=== PATIENT | female | born 1975 | race Caucasian/White ===

== ENCOUNTER 2019-08-05 10:03 | Observation (INO) | payer BC, SELFPAY ==
[2019-08-05 11:02] LABS: #Basophils 0.1 thou/uL (0.0-0.2); #Eosinphils 0.1 thou/uL (0.0-0.7); #Lymphocytes 2.8 thou/uL (1.20-3.40); #Monocytes 0.6 thou/uL (0.11-0.59); #Neutrophils 5.9 thou/uL (1.40-6.50); %Basophils 0.6 % (0.0-1.0); %Eosinophils 0.8 % (0.0-10.0); %Lymphocytes 29.6 % (21.0-51.0); Hemoglobin 16.6 g/dL (12.0-16.0); Mean Corpuscular HGB CONC 34.9 g/dL (32.0-36.0); Mean Corpuscular Hemoglobin 32.7 pg (27.0-31.0); Mean Corpuscular Volume 93.5 fL (78.0-98.0); Mean Platelet Volume 9.1 fL (7.4-10.4); Platelet Count 129 thou/uL (130-400); RBC Distribution Width 11.9 % (11.5-14.5); Red Blood Cell (RBC) Count 5.07 mill/uL (4.20-5.40); White Blood Cell (WBC) Count 9.4 thou/uL (4.8-10.8)
--- NOTE | 2019-08-05 11:11 | RAD ---
EXAM: Chest PA and lateral: HISTORY: Chest pain COMPARISON: 08/30/2009 FINDINGS: Heart size:Within normal limits. Lungs:Clear of acute process. No confluent pneumonia, overt edema, pleural effusion, or other acute process. IMPRESSION: No significant acute intrathoracic disease.
[2019-08-05 11:27] LABS: ALT (SGPT) 140 U/L (8-55); AST (SGOT) 66 U/L (5-34); Alkaline Phosphatase 145 U/L (40-110); Anion Gap 12 mmol/L (10-20); BUN (Urea Nitrogen) 11 mg/dL (7.0-18.7); Bilirubin, Total 0.6 mg/dL (0.2-1.2); CK (CPK) 59 U/L (29-168); Calc. Creatinine Clearance 0 mL/min (70-130); Calcium 9.7 mg/dL (7.8-10.44); Carbon Dioxide 24 mmol/L (22-29); Chloride 102 mmol/L (98-107); Estimated GFR-MDRD 78; Globulin 3.6 g/dL (2.4-3.5); Glucose 279 mg/dL (70-105); Potassium 4.2 mmol/L (3.5-5.1); Protein, Total 7.6 g/dL (6.0-8.3); Sodium 134 mmol/L (136-145)
[2019-08-05 11:30] LABS: BHCG - Serum Negative (NEGATIVE); Pregs Control Background? CLEAR/WHITE (CLR/WHITE); Pregs Control Bar Appear? YES (CONTROL BAR)
[2019-08-05] MEDS ORDERED: Aspirin Chewable 81 MG TAB ONE (12:43)
--- NOTE | 2019-08-05 13:41 | ULT ---
RIGHT UPPER QUADRANT ABDOMINAL ULTRASOUND: Date: 08/05/19 HISTORY: Chest pain and right upper quadrant abdominal pain. TECHNIQUE: Multiplanar Wheat scale and color Doppler images were obtained in a right upper quadrant abdominal ult rasound. FINDINGS: The liver demonstrates increased echogenicity. There is an area of focal fatty sparing. The gallbladd er is normal without stones, sludge, gallbladder wall thickening, or pericholecystic fluid. The commo n bile duct is upper limits of normal measuring 8 mm. The pancreas cannot be visualized. The right kidney is normal in echogenicity without hydronephrosis or calculus and measures 11.0 cm in length. IMPRESSION: Fatty liver. POS: [facility]
[2019-08-05 14:54] LABS: Troponin I Less than 0.010 ng/mL (< 0.028)
[2019-08-05 17:32] VITALS: BMI 35.2
[2019-08-05] MEDS ORDERED: Ondansetron ODT 4 MG TAB SL PRN (17:40)
[2019-08-05] MEDS ORDERED: Ondansetron PF 4 MG/2 ML Vial IVP PRN (17:40)
[2019-08-05] MEDS ORDERED: Zolpidem Tartrate 5 MG TAB PO PRN (20:04)
[2019-08-05] MEDS ORDERED: Acetaminophen 325 MG TAB PO PRN (20:06)
[2019-08-05] MEDS ORDERED: Ondansetron ODT 4 MG TAB PO PRN (20:06)
[2019-08-05] MEDS ORDERED: Atorvastatin Calcium 40 MG TAB PO SCH (21:00)
[2019-08-05] MEDS: Nystatin Powder 15 GM BOT TOP SCH (21:29)
--- NOTE | 2019-08-06 01:25 | HP ---
CHIEF COMPLAINT: Chest pain. HISTORY OF PRESENT ILLNESS: The patient is a 44-year-old female, who for the past week has been having intermittent episodes of chest pains, usually substernal. They radiate under the right breast up into the right shoulder and on the day of admission, they went down to the right arm where she was unable to use her right arm. They were made worse at times by deep breathing and by palpation, it can be replicated but not completely. There was associated nausea with this. At one point, it was associated with headache where she nearly passed out. She thought her relatives told her it was due to a migraine, so she put off coming to the ER to finally it got worse. There is some association with taking a deep breath as mentioned previously, but she has never had a pain like this before. Her family history is strong for coronary artery disease, so she was put in for further evaluation. There was no vomiting or diaphoresis associated with this. She also has a strong smoking history. PAST MEDICAL HISTORY: Significant for hyperlipidemia, migraines, anxiety disorder, tobacco abuse. PAST SURGICAL HISTORY: Includes right ankle surgery and nose surgery. PSYCHIATRIC HISTORY: As mentioned previously is strong for anxiety and depression. SOCIAL HISTORY: Denies alcohol use, drug use. There has been no recent smoking. ALLERGIES: TO LYRICA AND NAPROXEN. MEDICATIONS ON ADMISSION: Include: 1. Toprol 50 mg b.i.d. 2. Atorvastatin 40 mg at bedtime. REVIEW OF SYSTEMS: CONSTITUTIONAL: Negative for fatigue, fever, or chills. HEENT: Negative for sores or drainage from eyes, ears, nose, or throat. CARDIOVASCULAR: Significant with reported chest discomfort, but denies palpitations. RESPIRATORY: She denies cough or dyspnea. GI: She denies diarrhea or vomiting, but states there was some mild nausea associated with this chest discomfort. GENITOURINARY: She denies dysuria, blood in urine or stool. MUSCULOSKELETAL: Has some chest wall discomfort noted with palpation and sometimes with deep breathing. Otherwise, no major joint or muscle group discomfort. SKIN: She has distinctive rash underneath both breasts from sweating and it is very pruritic. NEUROLOGIC: Denies any headaches at this time. No changes in mentation, hypesthesia or anesthesia. HEMOLYTIC/LYMPH: Denies any new bruising or areas of swelling. PHYSICAL EXAMINATION: VITAL SIGNS: At the time of admission, blood pressure was 166/82, pulse 81, respirations 16, temperature 98.1 with pain scale 6/10 on arrival, and O2 saturation of 98% on room air. GENERAL: This is an alert, cooperative, oriented, obese female. HEENT: Normocephalic, atraumatic. Pupils are equal, round, and reactive to light. Extraocular muscles are intact. Normocephalic and atraumatic. NECK: Supple. Trachea midline. No mass. No bruit. CHEST: Clear to auscultation. There is distinctive rash underneath both breasts. Breast exams were deferred. Breath sounds are clear to auscultation bilaterally and currently do not reproduce any chest pain. CARDIOVASCULAR: Regular rate and rhythm without murmur. ABDOMEN: Soft, nontender without organomegaly. : Deferred. EXTREMITIES: Without clubbing, cyanosis, or edema. Normal range of motion in upper and lower extremities is noted. SKIN: Distinctive brownish macular rash underneath both breasts that is wet. NEUROLOGICAL: Cranial nerves are intact. Gait and cerebral function intact. Sensory exam is intact. Mental status is at baseline. LABORATORY DATA: Lab on admission. Chest x-ray shows no acute disease of the chest. EKG shows 79 beats per minute rate with no ST elevation or depression. T-waves are normal. No acute findings. WBCs are 9.4, hemoglobin is 16.6, hematocrit is 47.4 with platelets of 129. Sodium 134, potassium 4.2, chloride 102, CO2 of 24, BUN is 11, creatinine 0.79 with a GFR 78, glucose is 279, calcium 9.7, AST elevated at 66, ALT elevated at 140, alkaline phos elevated at 145, creatine kinase is 59. Troponins are negative. Lipase at 16. Serum test negative. Abdominal ultrasound shows no acute findings other than a fatty liver. ASSESSMENT: 1. Atypical chest pain with multiple risk factors. 2. Hyperglycemia, possible new onset diabetes. 3. Probable fatty liver disease. 4. Hemoconcentration. PLAN: Stress test and serial re-evaluation and reassessment of fasting glucose levels. We will also get a fasting lipid profile in the morning. Job ID: [id number]
[2019-08-06 05:46] LABS: #Basophils 0.1 thou/uL (0.0-0.2); #Eosinphils 0.1 thou/uL (0.0-0.7); #Lymphocytes 2.9 thou/uL (1.20-3.40); #Monocytes 0.6 thou/uL (0.11-0.59); #Neutrophils 4.3 thou/uL (1.40-6.50); %Basophils 1.2 % (0.0-1.0); %Eosinophils 1.5 % (0.0-10.0); %Lymphocytes 36.3 % (21.0-51.0); %Monocytes 7.5 % (0.0-10.0); %Neutrophils 53.5 % (42.0-75.0); Hemoglobin 15.8 g/dL (12.0-16.0); Mean Corpuscular Hemoglobin 33.3 pg (27.0-31.0); Mean Corpuscular Volume 95.3 fL (78.0-98.0); Platelet Count 129 thou/uL (130-400); Red Blood Cell (RBC) Count 4.73 mill/uL (4.20-5.40)
[2019-08-06 05:52] LABS: Hemoglobin A1c 8.8 % (4.0-6.0)
[2019-08-06 06:07] LABS: Anion Gap 9 mmol/L (10-20); BUN (Urea Nitrogen) 10 mg/dL (7.0-18.7); Calc. Creatinine Clearance 155 mL/min (70-130); Carbon Dioxide 26 mmol/L (22-29); Cardiac Risk 5.2 (Less than 4.5); Chloride 103 mmol/L (98-107); Cholesterol 88 mg/dl (< 200 Desired); Estimated GFR-MDRD 89; Glucose 273 mg/dL (70-105); HDL Cholesterol 17 mg/dL (>60 Neg Risk); LDL Cholesterol, Calculated 47 mg/dL; Potassium 3.8 mmol/L (3.5-5.1); Sodium 134 mmol/L (136-145); Triglycerides 119 mg/dL (Less than 150)
[2019-08-06] MEDS ORDERED: metFORMIN 500 MG TAB PO SCH (08:00)
[2019-08-06] MEDS: Nystatin Powder 15 GM BOT TOP SCH (08:26)
[2019-08-06] MEDS ORDERED: Aspirin Chewable 81 MG TAB PO SCH (09:00)
[2019-08-06] MEDS ORDERED: Lisinopril 5 MG TAB PO SCH (09:00)
[2019-08-06] MEDS ORDERED: Pioglitazone HCl 15 MG TAB PO SCH (09:00)
[2019-08-06 11:44] VITALS: BP 117/70; TEMP 98
--- NOTE | 2019-08-06 13:43 | NM ---
NUCLEAR MEDICINE CARDIAC PERFUSION EXAMINATION WITH EJECTION FRACTION: COMPARISON: None. HISTORY: 44-year-old female with chest pain. TECHNIQUE: A two day nuclear medicine cardiac perfusion examination was performed. Rest images were obtained usi ng 30.1 mCi of technetium-99m sestamibi. Stress images were obtained using 31.5 mCi of technetium-99m sestamibi and Adenosine. FINDINGS: Tomographic images show no fixed or reversible perfusion defects. Gated images show normal wall motio n with an ejection fraction of greater than 70%. EDV: 93 mL LHR: 0.2 TID: 1.3 IMPRESSION: No evidence of ischemia. POS: [facility]
[2019-08-06] MEDS ORDERED: ADENOSINE 60 MG/20 ML VIAL ONE (14:15)
== END 2019-08-06 15:49 | disposition home or self-care (01) ==
LOC: ERS 10:03 → 2SW 17:27
PROVIDERS: ADMIT Specialist; ATTEND Specialist
DX: R07.89 Other chest pain (principal); R73.9 Hyperglycemia, unspecified; E78.5 Hyperlipidemia, unspecified; E78.00 Pure hypercholesterolemia, unspecified; G43.909 Migraine, unspecified, not intractable, without status migrainosus; I10 Essential (primary) hypertension; Z79.899 Other long term (current) drug therapy; Z88.6 Allergy status to analgesic agent; Z88.8 Allergy status to other drugs, medicaments and biological substances
CPT/HCPCS: 36415; 36416; 71046; 76705; 78452; 80048; 80053; 80061; 82550; 83036; 83690; 84484; 84703; 85025; 93005; 93017; A9500; G0378; J0153

== ENCOUNTER 2023-06-24 05:33 | Emergency (ER) | payer BC, SELFPAY ==
[2023-06-24] MEDS ORDERED: Metoclopramide HCl 10 MG/2 ML VIAL ONE (06:10)
[2023-06-24] MEDS ORDERED: Magnesium 2 GM/50 ML BAG (IN WATER) ONE (06:10)
[2023-06-24] MEDS ORDERED: Aspirin Chewable 81 MG TAB ONE (06:10)
[2023-06-24] MEDS ORDERED: diphenhydrAMINE 50 MG/ML VIAL ONE (06:10)
[2023-06-24 06:17] LABS: #Basophils 0.1 thou/uL (0.0-0.2); #Eosinphils 0.1 thou/uL (0.0-0.7); #Monocytes 0.6 thou/uL (0.11-0.59); #Neutrophils 6.4 thou/uL (1.40-6.50); %Basophils 0.6 % (0.0-1.0); %Eosinophils 1.2 % (0.0-10.0); %Lymphocytes 26.6 % (21.0-51.0); %Monocytes 5.8 % (0.0-10.0); %Neutrophils 65.5 % (42.0-75.0); Hematocrit 50.1 % (36.0-47.0); Hemoglobin 17.4 g/dL (12.0-16.0); Mean Corpuscular HGB CONC 34.7 g/dL (32.0-36.0); Mean Corpuscular Hemoglobin 32.3 pg (27.0-31.0); Mean Corpuscular Volume 92.9 fl (78.0-98.0); Mean Platelet Volume 10.6 fL (7.4-10.4); Platelet Count 206 10x3/uL (130-400); RBC Distribution Width 12.5 % (11.5-14.5); Red Blood Cell (RBC) Count 5.39 mill/uL (4.20-5.40); White Blood Cell (WBC) Count 9.8 10x3/uL (4.8-10.8)
[2023-06-24 06:40] LABS: ALT (SGPT) 42 U/L (8-55); AST (SGOT) 33 U/L (5-34); Albumin 4.1 g/dL (3.5-5.0); Alkaline Phosphatase 91 U/L (40-110); Anion Gap 15 mmol/L (10-20); BUN (Urea Nitrogen) 23 mg/dL (7.0-18.7); Bilirubin, Total 0.7 mg/dL (0.2-1.2); Calc. Creatinine Clearance 0 mL/min (70-130); Calcium 9.7 mg/dL (7.8-10.44); Carbon Dioxide 24 mmol/L (22-29); Chloride 103 mmol/L (98-107); Estimated GFR 83; Globulin 3.8 g/dL (2.4-3.5); Glucose 179 mg/dL (70-105); Lipase 7 U/L (8-78); Potassium 3.8 mmol/L (3.5-5.1); Protein, Total 7.9 g/dL (6.0-8.3); Sodium 138 mmol/L (136-145)
[2023-06-24 06:44] LABS: Troponin I Less than 0.010 ng/mL (< 0.028)
[2023-06-24 07:07] LABS: SARS-CoV-2 NAA Rapid Test Not Detected (NotDetected)
[2023-06-24 09:54] LABS: Troponin I Less than 0.010 ng/mL (< 0.028)
[2023-06-24] MEDS ORDERED: HYDROcodone/Acetaminophen 10/325 mg Tablet ONE (10:39)
== END 2023-06-24 10:37 | disposition home or self-care (01) ==
LOC: ERS 05:33
DX: R07.2 Precordial pain (principal); R55 Syncope and collapse; F17.210 Nicotine dependence, cigarettes, uncomplicated; E78.00 Pure hypercholesterolemia, unspecified; Z79.899 Other long term (current) drug therapy; Z20.822 Contact with and (suspected) exposure to COVID-19
CPT/HCPCS: 36415; 70450; 71045; 71275; 74174; 80053; 83605; 83690; 84484; 85025; 85379; 93005; 96365; 96375; J1200; J2765; J3475

== ENCOUNTER 2025-08-01 19:53 | Emergency (ER) | payer BC ==
[2025-08-01 22:04] LABS: BHCG - Serum Negative (NEGATIVE); Pregs Control Background? CLEAR/WHITE (CLR/WHITE); Pregs Control Bar Appear? YES (CONTROL BAR)
[2025-08-01 22:10] LABS: #Basophils 0.07 10x3/uL (0.0-0.2); #Eosinophils 0.11 10x3/uL (0.0-0.7); #Monocytes 0.57 10x3/uL (0.11-0.59); #Neutrophils 5.77 10x3/uL (1.40-6.50); %Basophils 0.7 % (0.0-1.0); %Eosinophils 1.1 % (0.0-10.0); %Lymphocytes 32.3 % (21.0-51.0); %Monocytes 5.9 % (0.0-10.0); %Neutrophils 59.7 % (42.0-75.0); Hematocrit 47.8 % (36.0-47.0); Hemoglobin 16.1 g/dL (12.0-16.0); Mean Corpuscular Hemoglobin 30.6 pg (27.0-31.0); Mean Corpuscular Volume 90.9 fL (78.0-98.0); Platelet Count 209 10x3/uL (130-400); Red Blood Cell (RBC) Count 5.26 mill/uL (4.20-5.40); White Blood Cell (WBC) Count 9.68 10x3/uL (4.8-10.8)
[2025-08-01 22:13] LABS: ALT (SGPT) 52 U/L (Less than 34); AST (SGOT) 60 U/L (11-34); Acetaminophen Less than 10 mcg/mL (Less than 10); Albumin 3.8 g/dL (3.1-4.5); Alkaline Phosphatase 86 U/L (40-110); Anion Gap 12 mmol/L (10-20); BUN (Urea Nitrogen) 14 mg/dL (9.8-20.1); Bilirubin, Total 0.4 mg/dL (0.3-1.2); Calc. Creatinine Clearance 0 mL/min (70-130); Calcium 9.5 mg/dL (7.8-10.44); Carbon Dioxide 24 mmol/L (22-29); Chloride 107 mmol/L (98-107); Globulin 3.9 g/dL (2.4-3.5); Glucose 129 mg/dL (70-105); Potassium 3.7 mmol/L (3.5-5.1); Salicylate Less than 8.0 mg/dL (Less than 8.0); Sodium 139 mmol/L (136-145)
[2025-08-01 22:32] LABS: Cocaine Metabolite Screen Negative (Negative); THC/Cannabinoid Screen PRELIM POSITIVE (Negative); Tricyclic Screen Negative (Negative)
== END 2025-08-02 11:55 ==
LOC: ERS 19:53
DX: T42.4X2A Poisoning by benzodiazepines, intentional self-harm, initial encounter (principal); I10 Essential (primary) hypertension; F41.9 Anxiety disorder, unspecified; E78.00 Pure hypercholesterolemia, unspecified; G43.909 Migraine, unspecified, not intractable, without status migrainosus; F17.210 Nicotine dependence, cigarettes, uncomplicated; Z79.899 Other long term (current) drug therapy
CPT/HCPCS: 80053; 80306; 80307; 84703; 85025